=== PATIENT | female | born 1955 | race Caucasian/White ===

== ENCOUNTER → 2023-04-09 | Outpatient (CLI) | payer MEDICARE | END | disposition home or self-care (01) | LOC: EDSTATUS 09:58 → LAB 11:28 → LAB SHORT 11:28 | DX: R30.0 Dysuria (principal) | CPT/HCPCS: 87077; 87086; 87186 ==

== ENCOUNTER → 2023-06-17 | Outpatient (CLI) | payer MEDICARE ==
[~2023-06-17] MED LIST: FAMO20 PO
== END | disposition home or self-care (01) ==
LOC: LAB SHORT 09:09 → LAB 09:09
PROVIDERS: Nurse Practitioner Family
DX: G89.4 Chronic pain syndrome (principal); Z79.899 Other long term (current) drug therapy
CPT/HCPCS: G0480